=== PATIENT | female | born 1980 | race Caucasian/White ===

== ENCOUNTER 2020-05-01 03:31 | Emergency (ER) | payer OTHER ==
[2020-05-01 03:40] VITALS: BP 149/92; PULSE 71; TEMP 98.7; BMI 37.5
[2020-05-01] MEDS ORDERED: LORazepam 1 MG TABLET PO ONE (04:01)
[2020-05-01] MEDS ORDERED: HYDROCHLOROTHIAZIDE 25 MG TABLET (FP) ONE (04:03)
[2020-05-01] MEDS ORDERED: LORazepam 0.5 MG TABLET ONE (04:03)
[2020-05-01] MEDS ORDERED: HYDROCHLOROTHIAZIDE 25 MG TABLET (FP) PO ONE ×2 (04:11→04:12)
[2020-05-01] MEDS ORDERED: HYDROCHLOROTHIAZIDE 12.5 MG CAPSULE (FP) PO SCH (10:00)
[2020-05-01] MEDS ORDERED: HYDROCHLOROTHIAZIDE 12.5 MG CAPSULE (FP) PO ONE (15:02)
== END 2020-05-01 04:18 | disposition home or self-care (01) ==
LOC: FER 03:31
DX: R14.3 Flatulence (principal); F41.9 Anxiety disorder, unspecified; I10 Essential (primary) hypertension
CPT/HCPCS: 93005; 99283-25